=== PATIENT | male | born 1960 | race African-American/Black ===

== ENCOUNTER 2016-07-06 19:09 | Emergency (ER) | payer OTHER ==
[~2016-07-06] VITALS: Ht 256.5 cm; Wt 111.0 kg
[~2016-07-06 19:09] MED LIST: DIPH50 PO; DSS100 PO; IBUP-1546 PO; LANTUS SQ; LISI1TAB13 PO; METF500T4 PO; RANI150T7 PO; REGULAR INSULIN; SENN-34 PO
[2016-07-06 19:25] VITALS: BP 164/107
[2016-07-06] MEDS ORDERED: LURA40 PO (19:38)
[2016-07-06] MEDS ORDERED: LORA1TAB3 PO (19:38)
[2016-07-06] MEDS ORDERED: INSLAN SQ (19:45)
[2016-07-06] MEDS ORDERED: INSREG SQ (19:45)
== END 2016-07-06 21:54 | disposition left against medical advice (07) ==
LOC: EMS 19:11
DX: M25.551 Pain in right hip (principal); Z53.21 Procedure and treatment not carried out due to patient leaving prior to being seen by health care provider